=== PATIENT | male | born 1995 | race Hispanic/Latino ===

== ENCOUNTER 2025-01-29 22:21 | Emergency (ER) | payer SELFPAY ==
[~2025-01-29] VITALS: Ht 167.6 cm; Wt 74.8 kg
[2025-01-29 22:23] VITALS: TEMP 98.5
[2025-01-29 23:39] LABS: BASOPHILS % 0.4 % (0.0-1.0); EOSINOPHILS % 0.7 % (0.0-6.0); LYMPHOCYTES % 25.6 % (18.0-39.1); MONOCYTES % 9.4 % (4.4-11.3); NEUTROPHILS % 63.8 % (38.7-80.0); RED CELL DISTRIBUTION WIDTH 12.2 % (11.7-14.4)
[2025-01-29] MEDS: KETOROLAC TROMETHAMINE 30 MG/ML VIAL IV STA (23:51)
[2025-01-29 23:57] LABS: EST GLOMERULAR FILTRATION RATE 95.0 ML/MIN (>=60)
[2025-01-30] VITALS: PULSE 73; RESP 14
[2025-01-30 01:29] VITALS: BP 120/76; PULSE 66; RESP 16; TEMP 98.1; O2SAT 98
== END 2025-01-30 00:56 | disposition home or self-care (01) ==
LOC: ER 23:06
DX: R07.89 Other chest pain (principal); S29.011A Strain of muscle and tendon of front wall of thorax, initial encounter; X50.1XXA Overexertion from prolonged static or awkward postures, initial encounter; Y92.89 Other specified places as the place of occurrence of the external cause; F17.210 Nicotine dependence, cigarettes, uncomplicated
CPT/HCPCS: 36415; 71045; 80053; 84484; 85025; 93005; 99284; J1885